=== PATIENT | female | born 1965 | race Caucasian/White ===

== ENCOUNTER 2020-04-22 08:00 | Outpatient (CLI) | payer OTHER ==
[2020-04-22] MEDS ORDERED: NONE PER PT (08:57)
== END 2020-04-22 23:59 | disposition home or self-care (01) ==
LOC: LAB 08:00
PROVIDERS: ATTEND Obstetrics & Gynecology Gynecology
DX: Z01.812 Encounter for preprocedural laboratory examination (principal); Z20.828 Contact with and (suspected) exposure to other viral communicable diseases; N84.0 Polyp of corpus uteri; R93.89 Abnormal findings on diagnostic imaging of other specified body structures
CPT/HCPCS: 36415; 80053; 81001; 84703; 85025; 87635

== ENCOUNTER → 2020-05-14 | Outpatient (CLI) | payer OTHER ==
[~2020-05-14] MED LIST: NONE PER PT
== END | disposition home or self-care (01) ==
LOC: STAR 11:28
PROVIDERS: ATTEND Obstetrics & Gynecology Gynecology
DX: Z20.828 Contact with and (suspected) exposure to other viral communicable diseases (principal)
CPT/HCPCS: 87635

== ENCOUNTER 2020-05-19 09:02 | Day surgery (SDC) | payer OTHER ==
[2020-04-22 09:40] LABS: ALANINE AMINOTRANSFERASE 15 U/L (12-78); ALBUMIN 3.8 g/dL (3.4-5.0); ANION GAP 3 mmol/L (5-15); CALCIUM 8.7 mg/dL (8.5-10.1); CHLORIDE 112 mmol/L (98-107); CREATININE 0.84 mg/dL (0.55-1.02)
[2020-04-22 09:44] LABS: ALKALINE PHOSPHATASE 56 U/L (45-117); BILIRUBIN,TOTAL 0.4 mg/dL (0.2-1.0); TOTAL PROTEIN 7.3 g/dL (6.4-8.2)
[2020-04-22 09:57] LABS: BASOPHILS % (AUTO) 1 % (0-1); EOSINOPHILS % (AUTO) 3 % (1-7); LYMPHOCYTES % (AUTO) 27 % (22-44); MEAN CORPUSCULAR HEMOGLOBIN 31.7 pg (27.0-34.8); MEAN CORPUSCULAR HGB CONC 33.4 g/dL (32.4-35.8); MEAN PLATELET VOLUME 8.5 fL (7.4-10.4); MONOCYTES % (AUTO) 7 % (2-9); NEUTROPHILS % (AUTO) 62 % (42-75); PLATELET COUNT 209 x10^3/uL (130-400); RED BLOOD COUNT 4.01 x10^6/uL (3.82-5.3); RED CELL DISTRIBUTION WIDTH 14.8 % (9.6-15.2)
[2020-04-22 10:02] LABS: MD NO
[2020-04-22 10:33] LABS: MICROSCOPIC AUTO
[~2020-05-19] VITALS: Ht 167.6 cm; Wt 66.1 kg
[2020-05-19 09:32] VITALS: BP 105/71
[2020-05-19] MEDS ORDERED: CHLORHEXIDINE 15 ML UDC ONE (09:45)
[2020-05-19] MEDS ORDERED: CHLORHEXIDINE 15 ML UDC MM ONE (10:00)
[2020-05-19] MEDS ORDERED: LACTATED RINGERS 1,000 ML IV SCH (10:00)
[2020-05-19 10:03] LABS: HCG UR SG 1.025 (1.003-1.030)
[2020-05-19] MEDS ORDERED: DEXAMETHASONE 4 MG/ML, 1ML ONE (10:20)
[2020-05-19] MEDS ORDERED: ONDANSETRON 2MG/ML, 2ML ONE (10:20)
[2020-05-19] MEDS ORDERED: KETOROLAC 30 MG/1 ML ONE (10:20)
[2020-05-19] MEDS ORDERED: MIDAZOLAM 1 MG/ML, 2ML ONE (10:42)
[2020-05-19] MEDS ORDERED: FENTANYL PF 250 MCG/5ML ONE (10:42)
[2020-05-19] MEDS ORDERED: SILVER NITRATE STICK TP ONE (11:03)
[2020-05-19] MEDS ORDERED: BUPIVACAINE/PF 0.25% ONE (11:03)
[2020-05-19] MEDS ORDERED: EPINEPHRINE 1 MG/ML, 1ML ONE (11:03)
[2020-05-19] MEDS ORDERED: PROPOFOL 50 ML ONE (11:32)
[2020-05-19] MEDS ORDERED: ACETAMINOPHEN 325 MG TABLET PO PRN (12:00)
[2020-05-19] MEDS ORDERED: FENTANYL PF 100 MCG/2ML IV PRN (12:00)
[2020-05-19] MEDS ORDERED: EPHEDRINE 50 MG/ML, 1ML IVPush PRN (12:00)
[2020-05-19] MEDS ORDERED: LABETALOL 5MG/ML, 20ML IV PRN (12:00)
[2020-05-19] MEDS ORDERED: HYDROmorphone 1 MG/ML, 1ML INJ IVPush PRN (12:00)
[2020-05-19] MEDS ORDERED: MEPERIDINE/PF 25MG/0.5ML IVPush PRN (12:00)
[2020-05-19] MEDS ORDERED: METHOCARBAMOL 1,000 MG in DEXTROSE 5% 100 ML IV PRN (12:00)
[2020-05-19] MEDS ORDERED: ONDANSETRON 2MG/ML, 2ML IVPush PRN (12:00)
[2020-05-19] MEDS ORDERED: hydrALAzine 20 MG/ML, 1ML IV PRN (12:00)
[2020-05-19] MEDS ORDERED: PROMETHAZINE 25 MG/ML, 1ML IVPush PRN (12:00)
[2020-05-19] MEDS ORDERED: LORazepam 2 MG/ML, 1ML IVPush PRN (12:00)
[2020-05-19] MEDS ORDERED: OXYcodone 5 MG/5 ML ORAL.SOL UDC PO PRN (12:00)
== END 2020-05-19 14:20 | disposition home or self-care (01) ==
LOC: OUT 09:02
PROVIDERS: ATTEND Obstetrics & Gynecology Gynecology
DX: N93.9 Abnormal uterine and vaginal bleeding, unspecified (principal); N84.0 Polyp of corpus uteri; D25.9 Leiomyoma of uterus, unspecified; Z20.828 Contact with and (suspected) exposure to other viral communicable diseases; Z79.899 Other long term (current) drug therapy; Z91.048 Other nonmedicinal substance allergy status; Z80.0 Family history of malignant neoplasm of digestive organs; Z80.8 Family history of malignant neoplasm of other organs or systems
CPT/HCPCS: 58558; 81025; 87635; 88305; J1100; J1885; J2250; J2405; J2704; J3010; 36415; 80053; 81001; 84703; 85025; J0171